=== PATIENT | male | born 1940 | race Caucasian/White ===

== ENCOUNTER 2023-02-11 12:31 | Emergency (ER) | payer MEDICARE ==
[~2023-02-11] VITALS: Ht 182.9 cm; Wt 109.5 kg
[2023-02-11 12:41] VITALS: BP 120/50
[2023-02-11] MEDS ORDERED: methylPREDNISolone sod succ 125mg/2ml vial IM ONE (13:55)
[2023-02-11] MEDS ORDERED: HYDR-3973 PO ×2 (14:48→16:27)
[2023-02-11] MEDS ORDERED: METH4TAB81 PO (14:48)
== END 2023-02-11 16:02 | disposition home or self-care (01) ==
LOC: ER 12:32
DX: M25.562 Pain in left knee (principal); Z88.8 Allergy status to other drugs, medicaments and biological substances; Z79.899 Other long term (current) drug therapy
CPT/HCPCS: 73560; 93971; 96372; 99285; J2930; 99284